=== PATIENT | male | born 1940 | race Caucasian/White ===

== ENCOUNTER 2016-11-29 12:04 | Emergency (ER) | payer OTHER ==
[~2016-11-29] VITALS: Ht 170.2 cm; Wt 74.0 kg
[~2016-11-29 12:04] MED LIST: GABA100C4 PO; LISI2.5T3 PO; METF500T PO
[2016-11-29 12:06] VITALS: BP 174/88; PULSE 108; RESP 15; TEMP 98.2; O2SAT 98
[2016-11-29] MEDS ORDERED: SODIUM CHLORIDE 0.9% FLUSH 10 ML FLUSH IVF PRN (12:30)
--- NOTE | 2016-11-29 12:37 | PD ---
HPI Chief Complaint: Pain: Acute or Chronic Time Seen by Provider: 12:32 Travel History International Travel<30 days: No Contact w/Intl Traveler<30days: No Traveled to known affect area: No History of Present Illness HPI 76-year-old male presents to the emergency department with his family members for evaluation of multiple joint pain and swelling that started approximately 3 months ago. He states that he is losing weight and has lost muscle mass. The patient states he has swelling, first time was last year, he also fell last week. The patient denies any headache. No fevers or chills. No chest pain or short of breath. No abdominal pain. Nausea, vomiting, diarrhea. He reports chronic constipation, last BM was 3 days ago. Patient denies any erythema or warmth of the joints. Patient states that he was seen at [facility] was diagnosed with arthritis. He also has seen other providers and has had diagnoses from fibromyalgia, rheumatoid arthritis, osteoarthritis, to gout. He has not followed up with a specialist. He states that his primary care physician also told him that he had high potassium and was told to take [id number] supplements. The patient states he was prescribed meloxicam for his arthritis, but he did not take it. He will take an occasional Aleve or Advil for his pain. He states that he cannot sleep at night due to the joint pain. Family members are also concerned that he may have an autoimmune disease. [facility] Past Medical History Diabetes: Yes Social History Alcohol Use: No Tobacco Use: No Substance Use: No Allergies-Medications (Allergen,Severity, Reaction): Coded Allergies: Iodine (Verified Allergy, Unknown, swelling, 11/29/16) Penicillin (Verified Allergy, Unknown, rashes, 11/29/16) Reported Meds & Prescriptions Reported Meds & Active Scripts Active Reported Levemir Inj (Insulin Detemir) 1,000 unit/ 10 ML Vial 30 Units SQ DAILY Do not mix with any other Insulin. Atorvastatin (Atorvastatin Calcium) 40 Mg Tab 40 Mg PO HS Metformin (Metformin HCl) Unknown Strength Tab 1,000 Mg Pe PO BID With meals Lisinopril Unknown Strength Tab 5 Mg PO DAILY Gabapentin Unknown Strength Cap 800 Mg PO BID Review of Systems Except as stated in HPI: all other systems reviewed are Neg Physical Exam Narrative GENERAL: Well-nourished, well-developed elderly male patient, afebrile. SKIN: Focused skin assessment warm/dry. HEAD: Normocephalic. Atraumatic. EYES: No scleral icterus. No injection or drainage. NECK: Supple, trachea midline. No JVD or lymphadenopathy. CARDIOVASCULAR: Regular rate and rhythm without murmurs, gallops, or rubs. RESPIRATORY: Breath sounds equal bilaterally. No accessory muscle use. Lungs sounds are clear to auscultation. GASTROINTESTINAL: Abdomen soft, non-tender, nondistended. MUSCULOSKELETAL: No cyanosis, or edema. Bilateral upper lotion with strength 5/ 5. All extremities are neurovascularly intact. Patient has mild swelling to the right hand. He has tenderness to bilateral shoulders, bilateral wrists, bilateral knees, bilateral ankles. No erythema or warmth. BACK: Nontender without obvious deformity. No CVA tenderness. Data Data Last Documented VS Vital Signs Date Time Temp Pulse Resp B/P Pulse Ox O2 Delivery O2 Flow Rate FiO2 11/29/16 13:09 90 15 156/81 97 11/29/16 12:06 98.2 Orders Complete Blood Count With Diff (11/29/16 12:30) Comprehensive Metabolic Panel (11/29/16 12:30) Magnesium (Mg) (11/29/16 12:30) Urinalysis - C+S If Indicated (11/29/16 12:30) Chest, Single Ap (11/29/16 12:30) Ecg Monitoring (11/29/16 12:30) Iv Access Insert/Monitor (11/29/16 12:30) Oximetry (11/29/16 12:30) Sodium Chloride 0.9% Flush (Ns Flush) (11/29/16 12:30) Urine Culture (11/29/16 12:55) Prednisone (Deltasone) (11/29/16 14:15) Ketorolac Inj (Toradol Inj) (11/29/16 14:15) Labs Laboratory Tests Test 11/29/16 11/29/16 12:50 12:55 White Blood Count 10.6 TH/MM3 Red Blood Count 3.94 MIL/MM3 Hemoglobin 11.8 GM/DL Hematocrit 34.2 % Mean Corpuscular Volume 86.9 FL Mean Corpuscular Hemoglobin 29.9 PG Mean Corpuscular Hemoglobin 34.5 % Concent Red Cell Distribution Width 14.0 % Platelet Count 333 TH/MM3 Mean Platelet Volume 8.2 FL Neutrophils (%) (Auto) 73.8 % Lymphocytes (%) (Auto) 16.9 % Monocytes (%) (Auto) 7.5 % Eosinophils (%) (Auto) 1.2 % Basophils (%) (Auto) 0.6 % Neutrophils # (Auto) 7.8 TH/MM3 Lymphocytes # (Auto) 1.8 TH/MM3 Monocytes # (Auto) 0.8 TH/MM3 Eosinophils # (Auto) 0.1 TH/MM3 Basophils # (Auto) 0.1 TH/MM3 CBC Comment DIFF FINAL Differential Comment Sodium Level 138 MEQ/L Potassium Level 3.8 MEQ/L Chloride Level 106 MEQ/L Carbon Dioxide Level 20.2 MEQ/L Anion Gap 12 MEQ/L Blood Urea Nitrogen 17 MG/DL Creatinine 0.75 MG/DL Estimat Glomerular Filtration 101 ML/MIN Rate Random Glucose 143 MG/DL Calcium Level 9.6 MG/DL Magnesium Level 1.5 MG/DL Total Bilirubin 0.4 MG/DL Aspartate Amino Transf 16 U/L (AST/SGOT) Alanine Aminotransferase 18 U/L (ALT/SGPT) Alkaline Phosphatase 79 U/L Total Protein 7.1 GM/DL Albumin 3.1 GM/DL Urine Color YELLOW Urine Turbidity CLEAR Urine pH 5.5 Urine Specific [place] 1.036 Urine Protein 30 mg/dL Urine Glucose (UA) NEG mg/dL Urine Ketones NEG mg/dL Urine Occult Blood TRACE Urine Nitrite NEG Urine Bilirubin NEG Urine Urobilinogen 2.0 MG/DL Urine Leukocyte Esterase MOD Urine RBC 4 /hpf Urine WBC 20 /hpf Urine Squamous Epithelial <1 /hpf Cells Urine Hyaline Casts 3 /lpf Urine Mucus FEW /lpf Microscopic Urinalysis Comment CULTURE INDICATED MDM Medical Decision Making Medical Screen Exam Complete: Yes Emergency Medical Condition: Yes Medical Record Reviewed: Yes Interpretation(s) chest x-ray - CONCLUSION: No acute cardiopulmonary disease. Differential Diagnosis Arthritis versus general weakness versus electrolyte abnormality versus dehydration Narrative Course 76-year-old male presents to the emergency department for multiple joint pain and swelling that has been ongoing for 3 months. He states it hurts to walk and he has fallen because of the pain. Patient states that he was told he had arthritis among other possible diagnoses and the fibromyalgia and gout. Patient does appear on exam. He has tenderness over multiple joints. CBC, CMP , magnesium, UA, chest x-ray are ordered and pending. CBC shows normal WBC of 10.6, hemoglobin 11.8, hematocrit 34.2. CMP shows no acute abnormality. Magnesium is 1.5. UA shows moderate leukocyte esterase, 20 WBC. Chest x-ray shows no acute cardiopulmonary disease. Patient is requesting prednisone. I will give him a dose here and a short-term prescription for prednisone. He'll be given Toradol 15 mg IV. Patient also has UTI will be discharged prescription for Cipro. I encouraged him on the need to follow up with his primary care physician for further evaluation of this chronic joint pain. He verbalizes agreement and understanding.The patient was discharged in stable condition with instructions, including return instructions and follow up instructions. Diagnosis Primary Impression: Joint pain Qualified Code: M25.50 - Arthralgia, unspecified joint Additional Impression: Urinary tract infection Qualified Code: N30.00 - Acute cystitis without hematuria Referrals: Primary Care Physician call for appointment Patient Instructions: Arthritis (ED), General Instructions Additional Instructions: Take prednisone as directed. Start this prescription tomorrow. Take cipro as directed until gone. Follow-up with your primary care physician. Return to the emergency department for any acute worsening of symptoms. Med/Other Pt SpecificInfo: Prescription(s) given Scripts Ciprofloxacin 500 Mg [id number] Mg PO BID 10 Days Ref 0 Prov:Connie Henry 11/29/16 Prednisone 20 Mg Tab40 Mg PO DAILY 4 Days Ref 0 Prov:Connie Henry 11/29/16 Disposition: 01 DISCHARGE HOME Condition: Stable Connie Henry Nov 29, 2016 12:37
[2016-11-29] MEDS ORDERED: ATOR40TA16 PO (13:01)
[2016-11-29] MEDS ORDERED: LEVEMIR SQ (13:01)
--- NOTE | 2016-11-29 13:05 | RADRPT ---
EXAM DATE/TIME: 11/29/2016 12:28 [place] COMPARISON: No previous studies available for comparison. INDICATIONS : Short of breath and joint swelling. MEDICAL HISTORY : Testicular cancer. Prostate cancer. SURGICAL HISTORY : Prostatectomy. ENCOUNTER: Initial ACUITY: 1 day PAIN SCORE: 0/10 LOCATION: Bilateral chest FINDINGS: The lungs are clear without infiltrate, nodule, or mass. There is no appreciable pleural effusion fo r technique. Heart and mediastinum are unremarkable. CONCLUSION: No acute cardiopulmonary disease. Serafin Rausch MD on November 29, 2016 at 13:03 Board Certified Radiologist. This report was verified electronically.
[2016-11-29 13:09] VITALS: BP 156/81; PULSE 90; RESP 15; O2SAT 97
[2016-11-29 13:17] LABS: BLOOD, URINE TRACE (NEG); GLUCOSE,URINE NEG (NEG); HYALINE CAST, URINE 3 /lpf (RARE); KETONE, URINE NEG (NEG); MUCUS URINE FEW /lpf (OCC); NITRITE,URINE NEG (NEG); PH, URINE 5.5 (5.0-8.5); SQUAMOUS EPITHELIAL CELL URINE <1 /hpf (0-5); URINE COLOR YELLOW (YELLW/STRAW)
[2016-11-29 13:19] LABS: AUTOMATED NEUTROPHIL # 7.8 TH/MM3 (1.8-7.7); BASOPHIL # 0.1 TH/MM3 (0-0.2); BASOPHIL % 0.6 % (0.0-2.0); EOSINOPHIL # 0.1 TH/MM3 (0-0.4); EOSINOPHIL % 1.2 % (0.0-4.0); HEMATOCRIT 34.2 % (39.0-51.0); HEMO FLAGS DIFF FINAL; LYMPH % 16.9 % (9.0-44.0); LYMPHOCYTE # 1.8 TH/MM3 (1.0-4.8); MEAN CELL VOLUME 86.9 FL (80.0-100.0); MEAN CORPUSCULAR HEMOGLOBIN 29.9 PG (27.0-34.0); MEAN CORPUSCULAR HGB CONC 34.5 % (32.0-36.0); MONO % 7.5 % (0.0-8.0); NEUT % 73.8 % (16.0-70.0); PLATELET COUNT 333 TH/MM3 (150-450); RED BLOOD COUNT 3.94 MIL/MM3 (4.50-5.90); WHITE BLOOD COUNT 10.6 TH/MM3 (4.0-11.0)
[2016-11-29 13:21] LABS: COMMENT (UR) CULTURE INDICATED; CULTURE IF INDICATED CULTURE INDICATED
[2016-11-29 13:25] LABS: ANION GAP 12 MEQ/L (5-15); AST (GOT) 16 U/L (15-37); BICARBONATE 20.2 MEQ/L (21.0-32.0); BLOOD UREA NITROGEN 17 MG/DL (7-18); CHLORIDE 106 MEQ/L (98-107); GLOMERULAR FILTRATION RATE 101 ML/MIN (>89); MAGNESIUM 1.5 MG/DL (1.5-2.5); POTASSIUM 3.8 MEQ/L (3.5-5.1); SODIUM (NA) 138 MEQ/L (136-145)
[2016-11-29 13:29] LABS: ALKALINE PHOSPHATASE 79 U/L (45-117); ALT (GPT) 18 U/L (12-78); TOTAL BILIRUBIN ADULT 0.4 MG/DL (0.2-1.0)
[2016-11-29 14:11] VITALS: BP 164/75; PULSE 78; RESP 18; O2SAT 98
[2016-11-29] MEDS ORDERED: PRED20 PO (14:14)
[2016-11-29] MEDS ORDERED: predniSONE 20 MG TAB PO ONE (14:15)
[2016-11-29] MEDS ORDERED: KETOROLAC TROMETHAMINE 30 MG/ML (IVP) VIAL IV PUSH ONE (14:15)
[2016-11-29] MEDS ORDERED: CIPR500T2 PO (14:16)
[2016-11-29 14:44] VITALS: BP 179/98; PULSE 82; RESP 16; O2SAT 97
== END 2016-11-29 15:23 | disposition home or self-care (01) ==
LOC: NEPC 12:04
DX: M25.50 Pain in unspecified joint (principal); N30.00 Acute cystitis without hematuria; B96.89 Other specified bacterial agents as the cause of diseases classified elsewhere; E11.9 Type 2 diabetes mellitus without complications; Z79.4 Long term (current) use of insulin; Z79.84 Long term (current) use of oral hypoglycemic drugs; Z79.899 Other long term (current) drug therapy
CPT/HCPCS: 71010; 80053; 81001; 83735; 85025; 87086; 96374; 99284; J1885; J7512